=== PATIENT | male | born 1980 | race Caucasian/White ===

== ENCOUNTER 2017-03-12 00:13 | Emergency (ER) | payer OTHER ==
[~2017-03-12] VITALS: Ht 185.4 cm; Wt 124.0 kg
[2017-03-12] MEDS ORDERED: QUET300T71 PO (00:30)
[2017-03-12] MEDS ORDERED: ALBU8.5H8 IH (00:30)
[2017-03-12] MEDS ORDERED: TRAZ-147 PO (00:30)
[2017-03-12] MEDS ORDERED: QUET100T PO (00:30)
[2017-03-12] MEDS ORDERED: TRAM50TA4 PO (00:30)
[2017-03-12] MEDS ORDERED: IBUP-2070 PO (00:30)
[2017-03-12] MEDS ORDERED: VIST50 PO (00:30)
[2017-03-12] MEDS ORDERED: TIZA4TAB4 PO (00:30)
[2017-03-12] MEDS ORDERED: SERT50TA12 PO (00:30)
[2017-03-12] MEDS ORDERED: QUET25TA PO (00:30)
[2017-03-12] MEDS ORDERED: DIVA500T35 PO (00:30)
[2017-03-12 00:37] LABS: GLUCOSE,POINT OF CARE 125 MG/DL (70-110)
[2017-03-12 01:12] LABS: BASOPHILS # (AUTO) 0.04 K/uL (0.00-0.20); BASOPHILS % (AUTO) 0.5 % (0.0-2.0); EOSINOPHILS # (AUTO) 0.14 K/uL (0.00-0.70); EOSINOPHILS % (AUTO) 1.89 % (1.0-6.0); HEMATOCRIT 44.3 % (41-53); HEMOGLOBIN 15.2 g/dL (13.5-17.5); LYMPHOCYTES # (AUTO) 2.1 K/uL (1.0-4.8); MEAN CORPUSCULAR HEMOGLOBIN 31.5 pg (26.0-34.0); MEAN CORPUSCULAR HGB CONC 34.2 G/dL (31.0-37.0); MEAN CORPUSCULAR VOLUME 92 fL (80-100); MONOCYTES # (AUTO) 0.9 K/uL (0.1-1.0); MONOCYTES % (AUTO) 11.6 % (2.0-9.0); NEUTROPHILS # (AUTO) 4.3 K/uL (1.8-7.7); PLATELET COUNT (AUTO) 253 K/uL (150-450); RED BLOOD CELL COUNT(AUTO) 4.82 MIL/uL (4.50-5.90); RED CELL DISTRIBUTION WIDTH 12.5 % (11.5-14.5); WHITE BLOOD COUNT (AUTO) 7.4 K/uL (4.5-11.0)
[2017-03-12 01:20] LABS: ANION GAP 10 mmol/L (8-16); CALCIUM, TOTAL 8.6 mg/dL (8.8-10.5); CARBON DIOXIDE 25 mmol/L (22-29); CHLORIDE 102 mmol/L (98-107); CREATININE 1.03 mg/dL (0.60-1.30); GLOMERULAR FILTR. RATE CALC > 60 mL/min (>60); POTASSIUM 3.1 mmol/L (3.5-5.1); SODIUM SERUM 137 mmol/L (136-145); UREA NITROGEN, BLOOD 14 mg/dL (7-18)
[2017-03-12 01:26] LABS: ALANINE AMINOTRANSFERASE 44 U/L (12-78); ALBUMIN 4.2 g/dL (3.4-5.0); ASPARTATE AMINOTRANSFERASE 24 U/L (15-37); BILIRUBIN,TOTAL 1.3 mg/dL (0.1-1.0); TOTAL PROTEIN, SERUM 7.1 g/dL (6.4-8.2)
[2017-03-12] MEDS ORDERED: POTASSIUM CHLORIDE 20 MEQ ER TABLET PO ONE (03:15)
[2017-03-12 04:54] VITALS: BP 124/83
== END 2017-03-12 04:58 | disposition home or self-care (01) ==
LOC: EDBD 00:16 → EMS 00:16
DX: E87.6 Hypokalemia (principal); F20.0 Paranoid schizophrenia; F15.90 Other stimulant use, unspecified, uncomplicated
CPT/HCPCS: 36415; 80053; 80307; 82962; 85025; 99284; G0480

== ENCOUNTER 2017-03-12 09:01 | Inpatient (IN) | payer OTHER, MEDICAID ==
[~2017-03-12] VITALS: Ht 180.3 cm; Wt 129.3 kg
[~2017-03-12 09:01] MED LIST: ALBU8.5H8 IH; DIVA500T35 PO; IBUP-2070 PO; QUET100T PO; QUET25TA PO; QUET300T71 PO; SERT50TA12 PO; TIZA4TAB4 PO; TRAM50TA4 PO; TRAZ-147 PO; VIST50 PO
[2017-03-12] MEDS ORDERED: QUEtiapine FUMARATE 100 MG TABLET PO ONE (10:45)
[2017-03-12] MEDS ORDERED: LORazepam 2 MG TABLET PO ONE (10:45)
[2017-03-12] MEDS ORDERED: ZOLPIDEM TARTRATE 10 MG TABLET PO PRN (14:15)
[2017-03-12] MEDS: DIVALPROEX SODIUM 500 MG DR TABLET PO SCH (16:16)
[2017-03-12] MEDS: LORazepam 2 MG TABLET PO PRN (16:18)
[2017-03-12 17:08] VITALS: BP 136/97
[2017-03-12] MEDS ORDERED: INFLUENZA VIRUS VACCINE QVS 2017-18 (3YR+)/PF 60 MCG/0.5 ML SYRINGE IM ONE (17:45)
[2017-03-12] MEDS: QUEtiapine FUMARATE 300 MG TABLET PO SCH (20:30)
[2017-03-12] MEDS: TraZODone HCL 100 MG TABLET PO SCH (20:30)
[2017-03-13 01:00] VITALS: BP 102/61
[2017-03-13] MEDS: DIVALPROEX SODIUM 500 MG DR TABLET PO SCH ×2 (08:31→16:19)
[2017-03-13] MEDS: SERTRALINE HCL 50 MG TABLET PO SCH (08:31)
[2017-03-13] MEDS: QUEtiapine FUMARATE 100 MG TABLET PO SCH (08:32)
[2017-03-13] MEDS: NICOTINE 14 MG/24 HOUR PATCH TD SCH (08:32)
[2017-03-13 08:45] VITALS: BP 122/83
[2017-03-13] MEDS ORDERED: BACITRACIN 28.4 GM OINTMENT TP PRN (08:45)
[2017-03-13] MEDS ORDERED: ONDANSETRON HCL 4 MG TABLET PO PRN (08:45)
[2017-03-13] MEDS ORDERED: ACETAMINOPHEN 325 MG TABLET PO PRN (08:45)
[2017-03-13] MEDS ORDERED: MAGNESIUM HYDROXIDE SUSPENSION 30 ML UDCUP PO PRN (08:45)
[2017-03-13] MEDS ORDERED: ALBUTEROL SULFATE HFA 90 MCG/PUFF 8 GM INHALER IH PRN (08:45)
[2017-03-13] MEDS ORDERED: PETROLATUM,WHITE 71 GM JELLY TP PRN (08:45)
[2017-03-13] MEDS ORDERED: BENZOCAINE/MENTHOL LOZENGE MM PRN (08:45)
[2017-03-13] MEDS ORDERED: LOPERAMIDE HCL 2 MG CAPSULE PO PRN (08:45)
[2017-03-13] MEDS ORDERED: CloNIDine HCL 0.1 MG TABLET PO PRN (08:45)
[2017-03-13] MEDS ORDERED: MAG HYDROX/AL HYDROX/SIMETH ES 30 ML SUSPENSION UDCUP PO PRN (08:45)
[2017-03-13] MEDS ORDERED: IBUPROFEN 600 MG TABLET PO PRN (08:45)
[2017-03-13] MEDS: LORazepam 2 MG TABLET PO PRN (13:11)
[2017-03-13] MEDS: HALOPERIDOL 5 MG TABLET PO PRN (14:04)
[2017-03-13] MEDS: TraZODone HCL 100 MG TABLET PO SCH (20:18)
[2017-03-13] MEDS: QUEtiapine FUMARATE 300 MG TABLET PO SCH (20:18)
[2017-03-14 06:49] VITALS: BP 128/70
[2017-03-14] MEDS: QUEtiapine FUMARATE 100 MG TABLET PO SCH (08:07)
[2017-03-14] MEDS: NICOTINE 14 MG/24 HOUR PATCH TD SCH (08:08)
[2017-03-14] MEDS: DIVALPROEX SODIUM 500 MG DR TABLET PO SCH ×2 (08:08→16:04)
[2017-03-14] MEDS: SERTRALINE HCL 50 MG TABLET PO SCH (08:08)
[2017-03-14] MEDS: HALOPERIDOL 5 MG TABLET PO PRN (14:55)
[2017-03-14 16:05] VITALS: BP 121/63
[2017-03-14] MEDS: LORazepam 2 MG TABLET PO PRN (16:08)
[2017-03-14] MEDS ORDERED: NICOTINE POLACRILEX 4 MG LOZENGE PO SCH (17:30)
[2017-03-14] MEDS: TraZODone HCL 100 MG TABLET PO SCH (20:10)
[2017-03-14] MEDS: QUEtiapine FUMARATE 300 MG TABLET PO SCH (20:10)
[2017-03-15 08:41] LABS: HEMATOCRIT 48.1 % (41-53); HEMOGLOBIN 16.3 g/dL (13.5-17.5); MEAN CORPUSCULAR HEMOGLOBIN 31.7 pg (26.0-34.0); MEAN CORPUSCULAR HGB CONC 33.8 G/dL (31.0-37.0); MEAN CORPUSCULAR VOLUME 94 fL (80-100); PLATELET COUNT (AUTO) 240 K/uL (150-450); RED BLOOD CELL COUNT(AUTO) 5.13 MIL/uL (4.50-5.90); RED CELL DISTRIBUTION WIDTH 12.6 % (11.5-14.5)
[2017-03-15] MEDS: DIVALPROEX SODIUM 500 MG DR TABLET PO SCH ×2 (08:57→16:11)
[2017-03-15] MEDS: NICOTINE 14 MG/24 HOUR PATCH TD SCH (08:57)
[2017-03-15] MEDS: SERTRALINE HCL 50 MG TABLET PO SCH (08:57)
[2017-03-15] MEDS: QUEtiapine FUMARATE 100 MG TABLET PO SCH (08:57)
[2017-03-15 09:00] VITALS: BP 144/83
[2017-03-15 09:39] LABS: ANION GAP 1 mmol/L (8-16); CALCIUM, TOTAL 8.9 mg/dL (8.8-10.5); CARBON DIOXIDE 33 mmol/L (22-29); CHLORIDE 103 mmol/L (98-107); CHOL/HDL RATIO 3.3 (4.2-7.3); CHOLESTEROL 118 mg/dL (131-200); CREATININE 1.07 mg/dL (0.60-1.30); GLOMERULAR FILTR. RATE CALC > 60 mL/min (>60); GLUCOSE,RANDOM 83 mg/dL (70-110); HDL CHOLESTEROL 36 mg/dL (40-60); LDL CHOL (CALC.) 66 mg/dL (0-130); PHOSPHORUS 3.3 mg/dL (2.5-4.9); SODIUM SERUM 137 mmol/L (136-145); THYROID STIMULATING HORMONE 1.55 uIU/mL (0.36-3.74); TRIGLYCERIDES 79 mg/dL (15-150); UREA NITROGEN, BLOOD 13 mg/dL (7-18)
[2017-03-15 10:28] LABS: EOSINOPHILS % (MANUAL) 5 % (1-6); LYMPHOCYTES % (MANUAL) 29 % (22-44); MONOCYTES % (MANUAL) 10 % (2-9); SEGMENTED NEUTROPHILS % 56 % (40-70)
[2017-03-15] MEDS: LORazepam 2 MG TABLET PO PRN (14:12)
[2017-03-15] MEDS: HALOPERIDOL 5 MG TABLET PO PRN (15:54)
[2017-03-15 16:13] VITALS: BP 115/87
[2017-03-15] MEDS: TraZODone HCL 100 MG TABLET PO SCH (20:10)
[2017-03-15] MEDS: QUEtiapine FUMARATE 300 MG TABLET PO SCH (20:10)
[2017-03-16 01:43] VITALS: BP 121/85
[2017-03-16] MEDS: SERTRALINE HCL 50 MG TABLET PO SCH (08:11)
[2017-03-16] MEDS: QUEtiapine FUMARATE 100 MG TABLET PO SCH (08:12)
[2017-03-16] MEDS: NICOTINE 14 MG/24 HOUR PATCH TD SCH (08:12)
[2017-03-16] MEDS: DIVALPROEX SODIUM 500 MG DR TABLET PO SCH ×2 (08:12→16:39)
[2017-03-16] MEDS: LORazepam 2 MG TABLET PO PRN ×2 (08:58→18:42)
[2017-03-16 09:08] VITALS: BP 126/84
[2017-03-16] MEDS: HALOPERIDOL 5 MG TABLET PO PRN (09:42)
[2017-03-16 16:21] VITALS: BP 113/60
[2017-03-16] MEDS: TraZODone HCL 100 MG TABLET PO SCH (20:32)
[2017-03-16] MEDS: QUEtiapine FUMARATE 300 MG TABLET PO SCH (20:32)
[2017-03-17 01:30] VITALS: BP 111/63
[2017-03-17 08:29] VITALS: BP 131/77
[2017-03-17] MEDS: QUEtiapine FUMARATE 300 MG TABLET PO SCH ×2 (08:40→20:43)
[2017-03-17] MEDS: SERTRALINE HCL 50 MG TABLET PO SCH ×2 (08:40→16:40)
[2017-03-17] MEDS: NICOTINE 14 MG/24 HOUR PATCH TD SCH (08:40)
[2017-03-17] MEDS: DIVALPROEX SODIUM 500 MG DR TABLET PO SCH ×2 (08:40→16:40)
[2017-03-17] MEDS: LORazepam 2 MG TABLET PO PRN ×2 (09:22→14:33)
[2017-03-17] MEDS: HydrOXYzine PAMOATE 50 MG CAPSULE PO PRN (12:45)
[2017-03-17 16:22] VITALS: BP 129/84
[2017-03-17] MEDS: HALOPERIDOL 5 MG TABLET PO PRN (16:28)
[2017-03-17] MEDS: HYDROCORTISONE 1% 30 GM OINTMENT TP SCH (16:41)
[2017-03-17] MEDS: TraZODone HCL 100 MG TABLET PO SCH (20:43)
[2017-03-18 04:47] VITALS: BP 122/81
[2017-03-18] MEDS: NICOTINE 14 MG/24 HOUR PATCH TD SCH (08:02)
[2017-03-18] MEDS: QUEtiapine FUMARATE 300 MG TABLET PO SCH ×2 (08:03→20:22)
[2017-03-18] MEDS: HALOPERIDOL 5 MG TABLET PO PRN (08:03)
[2017-03-18] MEDS: SERTRALINE HCL 50 MG TABLET PO SCH ×2 (08:03→16:05)
[2017-03-18] MEDS: DIVALPROEX SODIUM 500 MG DR TABLET PO SCH ×2 (08:03→16:05)
[2017-03-18 08:37] VITALS: BP 119/70
[2017-03-18] MEDS: HYDROCORTISONE 1% 30 GM OINTMENT TP SCH ×2 (09:20→16:05)
[2017-03-18] MEDS: HydrOXYzine PAMOATE 50 MG CAPSULE PO PRN ×2 (09:34→16:05)
[2017-03-18 16:41] VITALS: BP 121/79
[2017-03-18] MEDS: TraZODone HCL 100 MG TABLET PO SCH (20:22)
[2017-03-19 05:30] VITALS: BP 113/70
[2017-03-19] MEDS: HydrOXYzine PAMOATE 50 MG CAPSULE PO PRN ×3 (05:37→19:57)
[2017-03-19] MEDS: NICOTINE 14 MG/24 HOUR PATCH TD SCH (08:10)
[2017-03-19] MEDS: DIVALPROEX SODIUM 500 MG DR TABLET PO SCH ×2 (08:10→16:39)
[2017-03-19] MEDS: QUEtiapine FUMARATE 300 MG TABLET PO SCH ×2 (08:10→20:28)
[2017-03-19] MEDS: SERTRALINE HCL 50 MG TABLET PO SCH ×2 (08:10→16:39)
[2017-03-19] MEDS: HYDROCORTISONE 1% 30 GM OINTMENT TP SCH ×2 (08:11→16:39)
[2017-03-19 08:38] VITALS: BP 116/72
[2017-03-19] MEDS: LORazepam 2 MG TABLET PO PRN ×2 (09:24→16:39)
[2017-03-19 16:11] VITALS: BP 123/80
[2017-03-19] MEDS: HALOPERIDOL 5 MG TABLET PO PRN (16:39)
[2017-03-19] MEDS: TraZODone HCL 100 MG TABLET PO SCH (20:28)
[2017-03-20 05:52] VITALS: BP 136/61
[2017-03-20] MEDS: SERTRALINE HCL 50 MG TABLET PO SCH (08:35)
[2017-03-20] MEDS: HYDROCORTISONE 1% 30 GM OINTMENT TP SCH (08:35)
[2017-03-20] MEDS: NICOTINE 14 MG/24 HOUR PATCH TD SCH (08:35)
[2017-03-20] MEDS: QUEtiapine FUMARATE 300 MG TABLET PO SCH (08:35)
[2017-03-20] MEDS: DIVALPROEX SODIUM 500 MG DR TABLET PO SCH (08:35)
[2017-03-20] MEDS ORDERED: ALBU8HFA IH (09:08)
[2017-03-20 09:29] VITALS: BP 139/69
== END 2017-03-20 13:30 | disposition home or self-care (01) | DRG 885 ==
LOC: EMS 09:02 → B2X 14:26
PROVIDERS: ADMIT Psychiatry & Neurology Child & Adolescent Psychiatry; ATTEND Psychiatry & Neurology Child & Adolescent Psychiatry
PROC: 3E0234Z Introduction of Serum, Toxoid and Vaccine into Muscle, Percutaneous Approach (ICD-10-PCS; principal; 2017-03-13)
DX: F20.0 Paranoid schizophrenia (principal); I49.5 Sick sinus syndrome; R45.851 Suicidal ideations; Z23 Encounter for immunization; E66.9 Obesity, unspecified; E87.6 Hypokalemia; F17.200 Nicotine dependence, unspecified, uncomplicated; G47.00 Insomnia, unspecified; J45.909 Unspecified asthma, uncomplicated; K59.00 Constipation, unspecified; Z79.899 Other long term (current) drug therapy; F41.9 Anxiety disorder, unspecified; M54.5 Low back pain; R73.9 Hyperglycemia, unspecified; Z56.0 Unemployment, unspecified; Z71.6 Tobacco abuse counseling
CPT/HCPCS: 82306; 83036; 83735; 84100; 84132; 84443; 85007; 87081; 90471; 99285